=== PATIENT | male | born 1955 | race Caucasian/White ===

== ENCOUNTER 2024-05-17 08:52 | Outpatient (AMB) | payer MEDICARE, OTHER, SELFPAY ==
--- NOTE | 2024-05-17 08:54 | MHC.OFFVIS ---
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 Pt states he also has always had nerve issues in the right LE. Pt states Right LE has swelling and uses compression stocking. Pt is very active and drives to [place] and has issues with his right LE. Swelling worsens at the end of the day. Pt has some pain over VV. Had US at [facility] in [place]. Pt states pain is worse when non-ambulatory. 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 He states he has a lengthy medical history of right lower extremity issues. Complaints include discomfort, swelling of lower extremities, fatigue, and heaviness of the lower extremities. It has been affecting their daily activities including physical activity. It is noted more so in right leg. The patient was very active, participating in sports in the gym. He is not a smoker and is not a diabetic. He was recently ruled out for a DVT. Patient denies any previous venous surgery or injections. Patient denies any history of DVT/ PE. Patient denies any history of phlebitis. Trial of compression includes - compression stockings, which he states helps with the swelling. They now present for vascular evaluation regarding their varicose veins. [facility] Social History (Updated 05/17/24 @ 09:08 by SONYN Nelson) Patient Tobacco Use Status: Never used Tobacco Review of Systems Const Reports as per HPI and Denies weakness ENT Reports Normal hearing present and Denies dizziness Card Reports as per HPI, Denies chest pain, Denies chest pain at rest, Denies chest pain with activity, Denies dyspnea and Denies dyspnea on exertion Resp Reports as per HPI, Denies cough, Denies dyspnea and Denies dyspnea on exertion GI Reports as per HPI, Denies abdominal pain, Denies nausea and Denies vomiting Musc Denies numbness Skin/Breast Reports as per HPI, Denies erythema and Denies wounds Neuro Reports Normal hearing present, Denies dizziness, Denies numbness, Denies Sensory deficit (Neuro) and Denies weakness Psych Reports no additional complaints Endo Reports no additional complaints Physical Exam Vital Signs: BMI result Body Mass Index 27.3 Const General: healthy appearing and no acute distress Orientation/consciousness: patient oriented x3 HEENT Head: Yes normal to inspection Ears: hearing grossly normal bilaterally Mouth: Normal oral and palatal mucosa present Resp Effort & Inspection: normal respiratory effort and able to speak in complete sentences Auscultation: clear to auscultation bilaterally Cardio Jugular venous distension: no JVD Rate: regular rate Rhythm: regular rhythm Heart sounds: S1 normal heart sound present and S2 normal heart sound present Bruits: no abdominal aortic bruits, no carotid bruits, no femoral bruits and no renal bruits Peripheral pulses: Peripheral pulses 2+ throughout GI Inspection: Yes normal to inspection Palpation (GI): No Abdominal aortic bruit present Skin General skin exam: no rashes or lesions noted Wounds: no wounds Hair: normal Neuro General: patient oriented x3 Cranial nerves: Yes Normal hearing present Cognition (Neuro): normal cognition Gait exam (Neuro): Normal gait present Motor exam (neuro): 5/5 motor strength present throughout Sensory Exam: No Sensory deficit (Neuro) Extrem Other: Right lower extremity:+1 nonpitting edema noted. Small varicosity noted on the anterior calf, approximately 2-3 cm long, not painful to palpation. Discoloration noted around the ankle Left lower extremity: Trace peripheral edema noted. Small varicosities noted on the posterior calf, approximately 2-3 cm long. CEAP: C - 3/4 E - primary A - superficial P - reflux General: Yes normal to inspection, Yes full ROM, Yes capillary refill normal and Yes normal gait Assessment & Plan Assessment & Plan (1) Varicose veins of right lower extremity with inflammation: Code(s): I83.11 - Varicose veins of right lower extremity with inflammation Category: Medical Plan: Kp is presenting today as a referral from his PCP for ongoing and worsening right lower extremity swelling and discomfort. He states he has had lifelong issues with the right lower extremity. He denies any concerns with the left lower extremity. In short, the patient has evidence of venous insufficiency. I have discussed the pathophysiology with the patient. In addition I have provided informational material regarding venous disease to the patient. We have discussed conservative measures including compression, elevation, and exercise. We discussed the importance of continuing with compression stockings. I have taken the liberty of ordering venous insufficiency testing with the patient. They will follow up with me after testing. We also discussed that this could be a possibility of a lymphedema type process; I did discuss with him that we will rule out venous insufficiency and discuss lymphedema if there is no insufficiency found. The patient had an opportunity to ask questions regarding the treatment plan. All questions were answered. Imaging studies, laboratory studies and physical exam results were discussed and reviewed in detail. No major barriers to understanding were identified. The patient expressed understanding and agreement with the above treatment plan. The patient is aware they should contact our office by phone for worsening of the current condition or the appearance of new symptoms. Thank you for allowing me to participate in the vascular care of this patient. If you have any questions or concerns regarding the treatment for the above condition please do not hesitate to contact me. The office telephone contact is [phone]. This note is constructed using voice recognition software. While every effort has been made to ensure accuracy, universal winding machine operator errors may have been included. Thank you for allowing me to participate in the care of your patient. Yours sincerely, PEDRO LUIS Carr Orders: Orders US venous duplex LE BI 1 Week I83.11 - Varicose veins of right lower extremity with inflammation Coding Level of Care Code New Pt Level 4 (02375) Diagnoses Varicose veins of right lower extremity with inflammation I83.11
[2024-05-17 08:57] VITALS: BMI 27.3
--- OUTSIDE RECORDS SUMMARY | 2024-05-17 09:12 | XMS_ITS | Encounter Summary ---
Author Organization [facility] Address [address] [place] [address] Care Team Providers Care Family Practice Physician Name Role Phone Michael Badillo MD Primary Care Provider [phone] Encounter Details Date Type Department Care Team (Late st Contact Info) Description 02/03/2021 Erroneous Encounter [facility] DEPT [address] [place] [address] ProviderDestini MD Social History Tobacco Use Types Packs/Day Years Used Date Smoking Tobacco: Never Assessed Sex and Gender Information Value Date Recorded Sex Assigned at Not on file Gender Identity Not on file Sexual Orientation Not on file documented as of this encounter Plan of Treatment Upcoming Encounters Date Type Department Care Team (Late st Contact Info) Description 05/30/2024 8:00 AM EDT Office Visit [facility] [address] [place] [address] Leroy Hussein MD [address] [place] [address] [address] [place] [address] documented as of this encounter Visit Diagnoses Not on filedocumented in this encounter Care Teams Family Practice Physician Relationship Specialty Start Date End Date Michael Badillo MD [address] [place] [id number] PCP - General 02/16/24 documented as of this encounter
--- OUTSIDE RECORDS SUMMARY | 2024-05-17 09:12 | XMS_ITS | Data Portability ---
Author Organization [place] [facility], PED[facility], [place] Address [address] [place] [address] Assessment Encounter Date Assessment Date Assessment LastModified by Organization Details LastModified Time 08/05/2023 08/05/2023 Ddx: mechanical back pain/muscle strain, herniated disc, infectious process such as epidural/spinal abscess, spinal bony lesion (fracture, cancer), cauda equina, spondyloarthropa thy, referred abdominal pain, CVA, CT, dissection, anxiety Patient is appropriate for discharge at this time. Vitals reviewed. Patient was counselled and educated on ddx, dx, and tx plan. Follow up or to ER for any numbness, tingling, weakness, vision changes, headache, or other concerns. Patient was instructed to return to clinic or seek immediate medical attention if signs or symptoms persist or worsen. Discussed supportive measures. All questions were addressed. Patient verbalizes understanding and is in agreement with plan. Not available 08/14/2023 08:55:03 Plan of Treatment Reminders Order Date Submit Date Provider Last Modified By Organization Details Last Modified Time Details Appointments None recorded. Lab lyme disease igg+igm, serum, reflex western blot 0[address] [place] [facility], [address] [place] [address], [address], 18:05:57 lyme disease igg+igm Ab, serum 021 [email or web address] In-Office Order, Internal Use Only DO Not Attach Compendium DO Not Attach Compendium, Do Not Delete/merge, [id number] 17:34:38 Referral None recorded. Procedures None recorded. Surgeries None recorded. Imaging None recorded. Medication Orders None recorded. Patient TargetsNo targets recorded. Patient Instructions Encounter Date Encounter Id Patient Instructions Last Modified By Organization Details Last Modified Time 08/27/2020 [id number] neck pain: care instructions Not available 08/27/2020 17:34:14 back pain: care instructions Not available 08/27/2020 17:34:14 Take medication as prescribed, read pharmacy phamplet and discuss any concerns with the pharmacist. [place] clothing with permethrin. Take motrin and tylenol as needed for pain. Follow up with your PCP Read hand outs. Follow up if you are not improving or are worsening. Not available 08/27/2020 15:51:50 08/05/2023 [id number] back pain: care instructions Not available 08/14/2023 06:13:31 back care and preventing injuries: care instructions Not available 08/14/2023 06:13:32 arthritis: care instructions Not available 08/14/2023 06:13:32 eyelid twitch: care instructions Not available 08/14/2023 06:13:32 Read hand outs. Follow up if you are not improving or are worsening. Follow up with PCP for workup. Advil or Tylenol if tolerated. Additional testing needed beyond what is available at urgent care. Not available 08/14/2023 08:56:42 Patient was discharged from Urgent Care in stable condition. Not available 08/14/2023 08:55:52 Reason for Referral None Reported. Results Created Date Observation Date Name Description Value Unit Range Abnormal Flag Note LastModifiedBy Organization Detail LastModifiedTime 08/28/19 21 08/27/2020 lyme disea se igg+i gm Ab, serum RESULT negati ve Not Available In-Office Order Internal Use Only DO Not Attach Compendium DO Not Attach Compendium, Do Not Delete/merge, [id number] 08/27/2020 15:50:25 08/28/19 21 08/29/2020 LYME ANTIB PEMA/L INE BLOT REFLE X lyme IgG/IgM Ab <0.91 isr 0.00-0 .90 Negat heriberto <0.91 Equiv ocal 0.91 - 1.09 Posit heriberto >1.09 Not Available [facility] ([facility]) [address] [facility], [place], [address], 08/29/2020 18:05:57 08/28/19 21 08/29/2020 LYME ANTIB PEMA/L INE BLOT REFLE X lyme disease Ab, quant, IgM <0.80 index 0.00-0 .79 Negat heriberto <0.80 Equiv ocal 0.80 - 1.19 Posit heriberto >1.19 IgM level s may peak at 3-6 weeks post infec tion, then gradu ally decli ne. Not Available [facility] ([facility]) [address] [facility], [place], [address], 08/29/2020 18:05:57 Result Notes None recorded. Problems No Known Problems Procedures Surgical History Date Name Laterality Status Provider Name and Address Organization Details Recorded Time Knee Surgery completed Pancho Butcher MD [address] [place], [address], [facility], [place] 08/27/2020 17:39:54 Other completed Pancho Butcher MD [address] [place], [address], [facility], [place] 08/27/2020 17:40:14 Imaging Results None recorded. Procedure Notes None recorded. Medical Equipment None Reported. Allergies No known drug allergies Medications Name Sig Start Date Stop Date Status Note LastModified by Organization Details LastModified Time oxycodone-a cetaminophe n 5 mg-325 mg tablet ONE TAB BY MOUTH EVERY 4 HOURS OR EVERY 6 HOURS NEEDED PAIN. TAKE WITH FOOD. 08/27 completed Not Available Not Available Not Available esomeprazol e magnesium 40 mg capsule,del ayed release 08/27 completed Not Available Not Available Not Available lansoprazol e 30 mg capsule,del ayed release TAKE 1 CAPSULE BY MOUTH TWICE A DAY DIRECTED 08/27 completed Not Available Not Available Not Available zolpidem 5 mg tablet TAKE 1 TABLET BY MOUTH AT BEDTIME NEEDED 08/27 completed Not Available Not Available Not Available ibuprofen 600 mg tablet ONE TABLET BY MOUTH EVERY 6 HOURS OR EVERY 8 HOURS NEEDED 08/27 completed Not Available Not Available Not Available zolpidem 10 mg tablet TAKE 1 TABLET BY MOUTH AT BEDTIME NEEDED FOR SLEEP 08/27 completed Not Available Not Available Not Available Nexium active Not Available Not Availa ble Not Available Vitals Date Recorded Body height Body mass index (BMI) Body weight Heart rate Oxygen saturation Oxygen saturation in Arterial blood by Pulse oximetry Body temperature Systolic blood pressure Diastolic blood pressure Provider Name and Address Organization Details Last Updated DateTime 1 195.58 cm 27.7 kg/m2 201600 g 67 /min 98 % 98 % 96 [degF] 151 mm[Hg] 75 mm[Hg] [facility] [place] [facility], [place] 1 15:10:06 Date Recorded Body height Body mass index (BMI) Body weight Heart rate Oxygen saturation Oxygen saturation in Arterial blood by Pulse oximetry Body temperature Systolic blood pressure Diastolic blood pressure Provider Name and Address Organization Details Last Updated DateTime 2 195.58 cm 28.7 kg/m2 244454 g 54 /min 100 % 100 % 97.5 [degF] 137 mm[Hg] 74 mm[Hg] MINA STERN ON LICENSE OF [facility], [place] 2 15:03:13 Date Recorded Body height Body mass index (BMI) Body weight Heart rate Oxygen saturation Oxygen saturation in Arterial blood by Pulse oximetry Body temperature Systolic blood pressure Diastolic blood pressure Provider Name and Address Organization Details Last Updated DateTime 4 195.58 cm 27.1 kg/m2 938426 g 50 /min 98 % 98 % 97.9 [degF] 116 mm[Hg] 72 mm[Hg] MINA STERN ON LICENSE OF [facility], [place] 4 13:55:51 Social History Question Answer Notes LastModified by Organizat ion Details LastModified Time Tobacco Smoking Status Never Smoker Pancho Butcher MD [address] [place], [address], [facility], [place] 08/27/2020 18:19:16 What Is Your Level Of Alcohol Consumption? Occasional Information not available 09/07/2021 What Was The Date Of Your Most Recent Tobacco Screening? 09/07/2021 Information not available 09/07/2021 Sex: Unknown Functional Status None recorded. Mental Status None recorded. Family History Relationship Description Onset Age of this Age Resolved Age Notes LastModified by Organization Details LastModified Time Father No current problems or disability [email or web address] Not available 08/27 17:39:29 Mother No current problems or disability [email or web address] Not available 08/27 17:39:29 Notes:denies Medical History Condition Response Back Pain Y GERD/Reflux Y Past Encounters Encounter ID Performer Location Encounter Start Date Encounter Closed Date Diagnosis/Indication Diagnosis SNOMED-CT Code Diagnosis ICD10 Code Diagnosis Note [id number] Pancho Butcher MD [facility] [address] [place] [phone] 08/27/2020 15:02:08 08/27/2020 16:08:00 Muscle pain 32598553 M79.10 Neck pain 50122604 M54.2 Backache 189480925 M54.9 Suspected Lyme disease 119220625 Z03.89 [id number] DANNIE RAMIREZ MD [facility] [address] [place] [phone] 09/07/2021 14:53:45 09/07/2021 15:45:21 Skin lesion 10401853 L98.9 No indication of cellulitis . Pain likely from excoriatio ns in umbilicus. Rec no further cleaning with fingers to avoid further scratches. Polysporin ointment. F/u if any inc redness/pa in or not improving over next 3-4 days with conservati ve tx Ddx: excoriatio n, early cellulitis . 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 G24.5 likely from caffeine; fatigue, allergies, or sleep could contribute follow up with any new/worsen ing symptoms Chronic back pain 227522 002 M54.9 declines any meds or tx, follow up for imaging as already scheduleds [facility] immediate care if worse Health Concerns Section Related Observation LastModified by Organization Detai ls LastModified Time None Recorded Concern Status LastModified by Organization Details LastModified Time None Recorded Advance Directives Directive None Recorded Payers Encounter Date Sequence Insurance Name Policy Number Policy Bishop Covered Member ID Bishop Member ID Guarantor Name 08/27/2020 2 [employer] [id number] 2 Kp Stewartestevanparas [id number] Kp Terrystephanie 09/07/2021 2 [employer] [id number] 2 Kp Stewartstephanie [id number] Kp Stewartstephanie 08/05/2023 1 [place] [employer] [place]ICARE[place] Kp Zavala Claudio [id number] Kp Stewartstephanie 08/05/2023 2 [facility] [id number] 2 Kp Zavala Claudio [id number] Kp Stewartstephanie Notes Date Note Type Note Provider Name and Address Organization Details Recorded Time 1 text/html Generic HPI Template UCReported bypatient.source of patient informationInformation obtained from patient; Patient arrived at Urgent Care ambulatory Location:Whole body Severity:Moderate Duration:2 weeks Onset/Timing:Gradual Context:History if lyme in the s Associated Symptoms:Neck pain, muscle aches and stomach pain 64yo male presents to the office for possible lyme. He states that he golf's a lot and is currently camping at [place]. He thinks he has a possible tick bite on his left leg. He states he had lyme back in the and he has the same feeling. He stats that he has neck pain, muscle aches and abdominal pain x2 weeks. Pancho Butcher MD [address] [place], [address], [facility], [place] 08/27/2020 18:20:54 2 text/html Umbilical pain x 4 days- Was cleaning umbilicus and scratched it- Has been painful since and worried it is infected- No redness that he's noted. No discharge- No fever. No systemic sx. DANNIE RAMIREZ MD [address] [place], [address], [facility] 09/07/2021 15:47:50 4 text/html Back Pain/Injury UCReported bypatient.source of patient informationInformation obtained from patient; Patient arrived at Urgent Care ambulatory; learning styles: visual Location:lower back; pain is not radiating Quality:dull Duration:2 days Context:prior back problems; previous imaging studies Alleviating Factors:chiropractor Aggravating Factors:prolonged sitting or lyingEye problems UCReported bypatient.source of patient informationInformation obtained from patient Location:left Eye Symptoms:twitching Severity:moderate Onset/Timing:few hours ago Modifying Factors:nothing gives relief abel Alleviating factors:nothing helps Patient in town camping. States had some left back pain after sleeping in tent. Has history of back issues including arthritis and nerve impingement. Recent check-up. Has MRI scheduled in 2 weeks. Sees chiropractor. States feels better when moving and active. Also reports left eye twitching this morning. Started after breakfast drinking coffee. No weakness, numbness, or tingling. No fevers. No bladder/bowel sx. No vision changes. PEDRO LUIS WANG [address] [place], [address], [facility] 08/14/2023 08:57:11
--- OUTSIDE RECORDS SUMMARY | 2024-05-17 09:12 | XMS_ITS | Clinical Summary ---
Author Organization [facility] it Address [address] [place] [address] Care Team Providers Care Grails Web Application Developer Name Role Phone Kp Huggins MD Primary Care Provider [phone] Medications esomeprazole (NexIUM) [address] Lindsay ns:Gastroesophag eal reflux disease without esophagitis Take 1 capsule (40 mg total) by mouth 1 (one) time each day before breakfast. Do not open capsule. 30 each 04/15/2024 04/15/19 26 Active Encounters Date Type Department Care Team Description 04/15/2024 Telephone Gastroenterology - [address] [place] [address] Zachary Winston MD Medication from Last 3 Months Social History Tobacco Use Types Packs/Day Years Used Date Smoking Tobacco: Never Smokeless Tobacco: Never Sex and Gender Information Value Date Recorded Sex Assigned at Not on file Legal Sex Male 9:27 AM EST Gender Identity Not on file Sexual Orientation Not on file Obstetrics History Plan of Treatment Health Maintenance Due Date Last Done Comments DTaP,Tdap,and Td Vaccines (1 - Tdap) 10/10/1975 Pneumococcal Vaccine: 50+ Ye ars (1 of 1 - PCV) 2006 Zoster Vaccines (1 of 2) 2006 COVID-19 Vaccine ( - 2023-2 5 season) 2023 Influenza Vaccine (#1) 2023 Abdominal Aortic Aneurysm (A AA) Screen 04/16/2024 Cholesterol Screening (Lipid Panel) 04/16/2024 Colorectal Cancer Screening: Colonoscopy 04/16/2024 Depression Screening 04/16/2024 Falls Risk Assessment 04/16/2024 Hepatitis C Screening 04/16/2024 Social Influencers of Health Screening 04/16/2024 RSV Immunization Patients 60 + Years Old (1 - 1-dose 75+ series) 10/10/2031 HIB Vaccines Aged Out No longer eligi ble based on patient's age to complete this topic HPV Vaccines Aged Out No longer eligi ble based on patient's age to complete this topic Hepatitis A Vaccines Aged Out No long er eligible based on patient's age to complete this topic Hepatitis B Vaccines Aged Out No long er eligible based on patient's age to complete this topic IPV Vaccines Aged Out No longer eligi ble based on patient's age to complete this topic MMR Vaccines Aged Out No longer eligi ble based on patient's age to complete this topic Meningococcal ACWY Vaccine Aged Out N o longer eligible based on patient's age to complete this topic Meningococcal B Vacine Aged Out No lo nger eligible based on patient's age to complete this topic RSV Immunization Patients [place] 20 months Aged Out No longer eligible b ased on patient's age to complete this topic Varicella Vaccines Aged Out No longer eligible based on patient's age to complete this topic Care Teams Grails Web Application Developer Relationship Specialty Start Date End Date Kp Huggins MD [address] [facility] [address] [place] [address] PCP - General Internal Medicine 07/14/20
--- OUTSIDE RECORDS SUMMARY | 2024-05-17 09:12 | XMS_ITS | Data Portability ---
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 PLAN: The findings were reviewed with the patient, including the examination results, diagnosis and planned treatment(s). The treatment options were discussed. All questions were answered. Patient will call if there are any problems or questions. The symptoms, signs, natural history and treatment alternatives of each of the diagnoses were discussed. We discussed the options. 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 We discussed the options including splinting. Educational material was given on CMC arthritis, as well as Dupuytren? s and long opponens splints. He would like to try an injection to the maximum area of tenderness, which was his STT joint. He may need a CMC joint injection in the future. He is not ready for surgery at this time. He understands the nonoperative treatment. I have explained the findings, diagnosis, natural history and treatment alternatives of thumb CMC arthritis. Pain and limited motion may restrict routine activities. Nonsurgical treatment modalities including immobilization, nonsteroidal anti-inflammatory medication, injections and activity modification may provide relief of pain. When pain and disability are not alleviated by non-operative treatment, surgical treatment may be indicated. Surgery will not return the thumb and hand to normal. However, surgery does improve most patients. The surgical options include but are not limited to joint debridement (arthroscopic or open), metacarpal osteotomy, CMC joint arthroplasty and CMC joint fusion. I answered all questions. Educational material was supplied. We have discussed the findings, diagnosis, natural history and treatment alternatives of Dupuytren's disease. The significance of family history was discussed. The unpredictable response to treatment was discussed. They understand that there is no evidence that this is related to trauma and/or occupation. Non-invasive treatment modalities are minimal and not usually helpful. Occasionally injection of cortisone may soften and decrease the size of nodules. At this time there is no non-operative treatment for a contracture. For certain contractures it is possible to perform percutaneous needle aponeurotomy (NA) or collagenase injection. The indication for treatment is the degree of contracture but the rate of progression and interference with ADLs are also important. There is no cure for this condition and it often requires intermittent treatment including surgery. Even with surgery the condition can extend to other location or in the same digit in a different location or recur in the same location. I have discussed the surgical treatment which is palmar and digital fasciectomy with a possible skin graft. The expected residential results and benefits of the surgery were fully explained. Most patients can expect excellent correction of the MP joint contracture. The PIP joint does not correct as well and an average of 50% correction can be expected. However, individual results can vary. The extension and recurrence rate can vary between 20-80%. Nerve transection can and does occur in Dupuytren's surgery and NA because of the intimate relationship of the disease and the nerve. The nerve can wind around the band. This would result in absent or decreased sensation and possible neuroma symptoms. Xiaflex has been associated with uncommon tendon rupture. The problems of Dupuytren's flare which is more common in patients with open procedures, bilateral involvement, foot involvement, a family history and in women was discussed. The problems of stiffness, loss of motion and need for therapy was discussed. The possible need for a skin graft and its problems and possible failure was discussed. Healing problems can occur with delayed healing, need for secondary debridement and need for skin graft was discussed. The possibility of reflex sympathetic dystrophy was discussed. Educational material was given. PROCEDURE: I have recommended an injection. I explained that a steroid and local anesthetic injection usually decreases pain, inflammation and symptoms of the condition. The office will be called immediately if there are any problems (i.e. pain, signs of infection) after the injection. Written instructions were given. The risks, complications, benefits and alternatives were discussed including but not limited to pain, infection; unrelieved, recurrent or worsening symptoms; tendon, nerve or joint injury. The patient is aware that additional injections may be necessary. I gave no guarantees regarding outcome. If they have diabetes the cortisone may upset their diabetic protocol and if there is a problem they should contact their physician who takes care of their diabetes. The possibility of fat atrophy and depigmentation was discussed. Educational material was given. After sterile prep using aseptic technique, the left STT joint was injected through the dorsoradial portal with 10mg of Kenalog and 0.5cc of Lidocaine. He tolerated it well. Not available 05/05/2019 20:44:18 11/14/2019 11/14/2019 DATA: Radiograph s are reviewed and interpreted of the left thumb from 05/02/2019 and is consistent with STT joint that is rather dramatic, as well as definite thumb CMC joint. PLAN: The findings were reviewed with the patient, including the examination results, diagnosis and planned treatment(s). The treatment options were discussed. All questions were answered. Patient will call if there are any problems or questions. The symptoms, signs, natural history and treatment alternatives of each of the diagnoses were discussed. We discussed the options. His main clinical problems is STT joint arthritis, but he also has thumb CMC arthritis and is clearly symptomatic but not as much so. He would like an injection for the STT joint. We discussed if surgery was needed, he would need that taken care of at the STT joint, as well as the CMC joint. Therefore, he would need an LRTI type of procedure. He is not a candidate for thumb CMC fusion or a wrist STT fusion or an isolated ST arthroplasty. We explained that in great detail. I did give him educational material on CMC arthritis and the postoperative protocol. He would like an injection. He will follow the nonoperative protocol. PROCEDURE: I have recommended an injection. I explained that a steroid and local anesthetic injection usually decreases pain, inflammation and symptoms of the condition. The office will be called immediately if there are any problems (i.e. pain, signs of infection) after the injection. Written instructions were given. The risks, complications, benefits and alternatives were discussed including but not limited to pain, infection; unrelieved, recurrent or worsening symptoms; tendon, nerve or joint injury. The patient is aware that additional injections may be necessary. I gave no guarantees regarding outcome. If they have diabetes the cortisone may upset their diabetic protocol and if there is a problem they should contact their physician who takes care of their diabetes. The possibility of fat atrophy and depigmentation was discussed. Educational material was given. After sterile prep using aseptic technique, the left wrist STT joint was injected at the maximum area of tenderness through a dorsal radial portal. He tolerated it well. We will see him back as needed. The patient did complete the COVID-19 screening handout and was deemed healthy to move forward with this appointment. This visit is a [id number] visit during the COVID-19 pandemic Public Health Emergency. Based on my clinical judgment, I felt that this visit could not be provided safely and appropriately via TeleHealth. Based on available information prior to presentation, the patient had a high risk of significant worsening and potential functional impairment affecting ADLs if the visit was not completed today. The patient was seen in the office after following PPE use, Workforce Safety, Patient Safety and Infection Control protocols for all services provided today in accordance with [facility] and CDC guidelines. There was additional practice expense incurred due to the Public Health Emergency. This additional expense includes but is not limited to: ? ? Additional clinical staff and medical career technical counselor time for pre-screening ? ? Time spent reviewing COVID social distancing guidelines, precautions, instructions, and signage ? ? Patient symptom checking upon arrival ? ? Application, removal, and purchasing of additional PPE ? ? Additional cleaning of exam room, equipment, supplies, as well as cleaning supplies for that purpose. Not available 11/17/2019 22:26:25 Plan of Treatment Reminders Order Date Submit Date Provider Last Modified By Organization Details Last Modified Time Details Appointments None recorded. Lab None recorded. Referral None recorded. Procedures None recorded. Surgeries None recorded. Imaging None recorded. Medication Orders Kenalog 10 mg/mL suspension for injection 2019 020 aterrono Not available 0 07:03:02 Kenalog 10 mg/mL suspension for injection 2019 020 ajawa Not available 0 14:48:02 Patient TargetsNo targets recorded. Patient InstructionsNo instructions recorded. Reason for Referral None Reported. Procedures Surgical History Date Name Laterality Status Provider Name and Address Organization Details Recorded Time 6 Orthopaedic Surgery completed Trang Larkin [facility] 05/02/2019 09:54:44 3 Orthopaedic Surgery completed Trang Larkin [facility] 05/02/2019 09:54:26 Imaging Results None recorded. Procedure Notes None recorded. Medical Equipment None Reported. Allergies Allergen ID Allergen Name Allergen Category Reaction Reaction Severity Criticality Documentation Date Start Date Code Code System Note Provider Name and Address Organization Details Recorded Time 589467 acetamino phen / oxycodone medicatio n nausea Not available Not available 05/02/201907088 3 [facility] 0 09:52:48 913598 acetamino phen / hydrocodo ne medicatio n nausea Not available Not available 05/02/201948996 2 [facility] 0 09:[facility]57 Medications Name Sig Start Date Stop Date Status Note LastModified by Organization Details LastModified Time ofloxacin 0.3 % eye drops 05/02 completed Not Available Not Available Not Available ketorolac 0.5 % eye drops active Not Available Not Available Not Available prednisolon e acetate 1 % eye drops,suspe nsion active Not Available Not Available Not Available Kenalog 10 mg/mL suspension for injection Take 1 mL by injection route. 2019 active Not Available Not Available Not Avai lable lansoprazol e 30 mg capsule,del ayed release active Not Available Not Available Not Available zolpidem 10 mg tablet TK 1 T PO QD HS PRF PHARMACEUTICAL SPECIALTY REPRESENTATIVE active Not Available Not Available No t Available Fluarix Quad (PF) 60 mcg (15 mcg x 4)/0.5 mL IM syringe 05/02 completed Not Available Not Available Not Available Fluzone Quad (PF) 60 mcg (15 mcg x 4)/0.5 mL IM syringe PHARMACY ADMINISTE RED active Not Available Not Available No t Available Vitals Date Recorded Body height Body mass index (BMI) Body weight Provider Name and Address Organization Details Last Updated DateTime 05/02/2019 195.58 cm 27.3 kg/m2 119538.25 g Trang Larkin [facility] 05/02/2019 09:52:26 Date Recorded Body height Body mass index (BMI) Body weight Provider Name and Address Organization Details Last Updated DateTime 11/14/2019 195.58 cm 27.3 kg/m2 445590.25 g Priscilla Aguilar [facility] 11/14/2019 09:34:20 Social History Question Answer Notes LastModified by Organizat ion Details LastModified Time Tobacco Smoking Status Never Smoker Trang Trae umaña [facility] 05/02/2019 09:53:48 What Is Your Level Of Alcohol Consumption? Occasional Information not available 05/02/2019 If Patient Spent Time In [facility] - Does The Patient Live In [facility]? No Information not available 05/02/2019 In The 14 Days Before Symptom Onset, Did The Patient Spend Time In [facility]? No Information not available 05/02/2019 Have You Been To An Area Known To Be High Risk For COVID-19? No Information not available 05/02/2019 What Is Your Occupation? Retired Information not available 05/02/2019 Sex: Unknown Functional Status None recorded. Mental Status None recorded. Family History Relationship Description Onset Age of this Age Resolved Age Notes LastModified by Organization Details LastModified Time Father No current problems or disability [email or web address] Not available 05/02 09:53:35 Mother No current problems or disability [email or web address] Not available 05/02 09:53:35 Medical History Condition Response Blood Clots / Phlebitis N HIV or AIDS N Heart Problems N High Blood Pressure N Depression or Anxiety N Irregular Heartbeat N MRSA N Emphysema / Chronic Bronchitis N Any Other Significant Medical Issues N Reaction to General/Local Anesthesia N Hepatitis / Jaundice N Weight Gain / Loss N Kidney / Bladder Infections N Diabetes N Bleeding Disorder N Hearing Loss N Angina, Heart Failure or Attack N Night Sweats N Seizures / Epilepsy N Osteoarthritis / Rheumatoid arthritis / Other Y Cancer N Stroke N Chemical Dependency / Alcoholism N Ulcer / Stomach Bleeding / Indigestion N Visual Loss or Glaucoma N Psoriasis / Skin Rash N Thyroid Disorder N Heart Disease N Asthma / Shortness of Breath / Sleep Brand Attendant ea (please specify) N Pulmonary Embolism N Immunizations Vaccine Type Date Status Note Provider Nam e and Address Organization Details Recorded Time Influenza, split virus, quadrivalent, preservative 0 completed Trang Larkin [facility] 05/02/2019 09:53:27 Past Encounters Encounter ID Performer Location Encounter Start Date Encounter Closed Date Diagnosis/Indication Diagnosis SNOMED-CT Code Diagnosis ICD10 Code Diagnosis Note [id number] KAYLEE PAT MD [address] [address] 05/02/2019 09:21:45 05/02/2019 11:02:34 Dupuytrens contracture of bilateral hands [id number] 4931418 M72.0 Osteoarthr osis of the carpometacarpal joint of the thumb 71528819 M18.12 [id number] KAYLEE PAT MD [address] [address] 11/14/2019 09:17:19 11/14/2019 09:54:40 Osteoarthritis of wrist 499946303 M19.032 Osteoarthr osis of the carpometacarpal joint of the thumb 42574421 M18.12 Health Concerns Section Related Observation LastModified by Organization Detai ls LastModified Time None Recorded Concern Status LastModified by Organization Details LastModified Time None Recorded Advance Directives Directive None Recorded Payers Encounter Date Sequence Insurance Name Policy Number Policy Bishop Covered Member ID Bishop Member ID Guarantor Name 05/02/2019 1 [facility] [id number] Rich Snyder [id number] Rich Snyder 11/14/2019 1 [facility] ([facility]) [id number] Rich Snyder [id number] Rich Snyder Notes Date Note Type Note Provider Name and Address Organization Details Recorded Time 05/02/2019 text/html HX: 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 He is seen for radial sided left wrist pain and base of thumb pain. He has previously been seen by Dr. Pedro Schmidt, and he is here for follow-up. He was initially scheduled for surgery, and then his of cancer in 2018, so he postponed the surgery. Dr. Schmidt suggested that he come here to follow up after he has moved to [place]. He has not had any injections. He has no numbness or tingling and no clicking or locking. 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 s. It? s unclear. REVIEW OF SYSTEMS: Review of systems is performed including allergy and immune system, cardiovascular system, constitutional symptoms, eyes, ears, nose and throat, endocrine system, gastrointestinal system, genitourinary system, hematologic system, skin, musculoskeletal system, neurologic system, psychiatric, and respiratory system are noncontributory and recorded in the chart. 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 He is seen for radial sided left wrist pain and thumb base pain. He has previously been seen by Dr. Pedro Schmidt. On 05/02/2019, I injected the left wrist STT joint, and that helped a lot. He does have some fibromatosis and a history of Dupuytren? s, but possible history of Dupuytren? s it is unclear. The injection helped, but symptoms have started to recur. REVIEW OF SYSTEMS: Review of systems is performed including allergy and immune system, cardiovascular system, constitutional symptoms, eyes, ears, nose and throat, endocrine system, gastrointestinal system, genitourinary system, hematologic system, skin, musculoskeletal system, neurologic system, psychiatric, and respiratory system are noncontributory and recorded in the chart. KAYLEE PAT MD [address] [place] [address], [phone], [facility] 11/18/2019 08:48:14
--- OUTSIDE RECORDS SUMMARY | 2024-05-17 09:12 | XMS_ITS | Clinical Summary ---
Author Organization [facility] Address [address] [place] [address] Care Team Providers Care Gas Worker Name Role Phone Michael Badillo MD Primary Care Provider [phone] Social History Tobacco Use Types Packs/Day Years Used Date Smoking Tobacco: Never Assessed Sex and Gender Information Value Date Recorded Sex Assigned at Not on file Gender Identity Not on file Sexual Orientation Not on file Plan of Treatment Upcoming Encounters Date Type Department Care Team (Late st Contact Info) Description 05/30/2024 8:00 AM EDT [facility] Visit [facility] [address] [place] [address] Leroy Hussein MD [address] [place] [address] [address] [place] [address] Health Maintenance Due Date Last Done Comments Hepatitis C Virus Screening 1955 DTaP/Tdap/Td Vaccines (1 - Tdap) 10/10/1975 Colonoscopy 2001 Pneumococcal Vaccines 50+ (1 of 1 - PCV) 2006 Zoster (Shingles) Vaccine (1 of 2) 2006 Influenza Vaccine 10/05/2023 COVID-19 Vaccine (1 - 2023-2 5 season) 2023 RSV Vaccine 60 years and old er and Patients (1 - 1-dose 75+ series) 10/10/2031 Hepatitis B Vaccines Aged Out No long er eligible based on patient's age to complete this topic Care Teams Gas Worker Relationship Specialty Start Date End Date Michael Badillo MD [address] [facility] [address] [place], [place] [phone] PCP - General 02/16/24
== END 2024-05-17 09:29 | disposition home or self-care (01) ==
LOC: HO.HVS 08:52
PROVIDERS: PCP Internal Medicine; Visit Provider Physician Assistant Surgical
DX: I83.11 Varicose veins of right lower extremity with inflammation (principal)
CPT/HCPCS: 99204

== ENCOUNTER → 2024-05-17 08:52 | Outpatient (BNVA) | payer MEDICARE, OTHER, SELFPAY | PROVIDERS: PCP Internal Medicine; Visit Provider Physician Assistant Surgical | DX: I83.11 Varicose veins of right lower extremity with inflammation (principal) | CPT/HCPCS: 99202 ==

== ENCOUNTER 2024-06-06 08:22 | Outpatient (REF) | payer MEDICARE, OTHER, SELFPAY ==
--- NOTE | ~2024-06-06 | US_ITS ---
EXAMINATION: US LOWER EXTREMITY VENOUS (REFLUX EXAM), BILATERAL CLINICAL INFORMATION: Varices. Inflammation. COMPARISON: None. TECHNIQUE: Color flow triplex imaging and compression Doppler was performed to evaluate both the deep and the superficial systems bilaterally. To evaluate the superficial system, the examination was performed in the upright position. Color-flow Doppler ultrasound and compression ultrasound were utilized. In addition, maneuvers were utilized to demonstrate reflux. FINDINGS: 1. DEEP VENOUS ULTRASOUND OF THE RIGHT LOWER EXTREMITY: Common Femoral Vein: Compressible, normal respiratory variation and augmented flow. Femoral Vein: Compressible, normal color flow and augmentation. Popliteal Vein: Compressible, normal augmentation. Deep Reflux: There is no evidence of reflux in the deep system in either the common femoral vein, superficial femoral or the popliteal vein. There is no evidence of a Pérez's cyst. 2. SUPERFICIAL ULTRASOUND WITH DOPPLER OF RIGHT LOWER EXTREMITY: GREAT SAPHENOUS VEIN: Saphenofemoral Junction: Not seen. Proximal Thigh: 0.1 cm; Reflux: 0 ms Mid Thigh: 0.1 cm; Reflux: 0 ms Distal Thigh: 0.1 cm; Reflux: 0 ms At Knee: 0.1 cm; Reflux: 0 ms Proximal Calf: 0.1 cm; Reflux: 0 ms Mid Calf: 0.1 cm; Reflux: 0 ms Distal Calf: 0.1 cm; Reflux: 0 ms DUPLICATED MEDIAL GREAT SAPHENOUS VEIN: Diameter: None imaged Reflux: NA DUPLICATED LATERAL GREAT SAPHENOUS VEIN: Diameter: None imaged Reflux: NA SMALL SAPHENOUS VEIN: Saphenopopliteal Junction: 0.6 cm; Reflux: 0 ms Proximal: 0.3 cm; Reflux: 0 ms Distal: 0.3 cm; Reflux: 0 ms VEIN OF GIACOMINI: Size: NA Reflux: NA PERFORATORS: Location: Mid thigh, proximal and mid calf. Size: 0.2 cm. Reflux: 2676 ms in the proximal calf. VARICOSITIES: Location: Small saphenous vein proximal segment. Distal calf. Size: 0.3 cm. Reflux: NA 3. DEEP VENOUS ULTRASOUND OF THE LEFT LOWER EXTREMITY: Common Femoral Vein: Compressible, normal respiratory variation and augmented flow. Femoral Vein: Compressible, normal color flow and augmentation. Popliteal Vein: Compressible, normal augmentation. Deep Reflux: There is no evidence of reflux in the deep system in either the common femoral vein, superficial femoral or the popliteal vein. There is no evidence of a Pérez's cyst. 4. SUPERFICIAL ULTRASOUND WITH DOPPLER OF LEFT LOWER EXTREMITY: GREAT SAPHENOUS VEIN: Saphenofemoral Junction: 0.9 cm; Reflux: 0 ms Proximal Thigh: 0.4 cm; Reflux: 0 ms Mid Thigh: 0.4 cm; Reflux: 0 ms Distal Thigh: 0.5 cm; Reflux: 0 ms At Knee: 0.4 cm; Reflux: 0 ms Proximal Calf: 0.4 cm; Reflux: 0 ms Mid Calf: 0.1 cm; Reflux: 0 ms Distal Calf: 0.3 cm; Reflux: More than 3016 ms DUPLICATED MEDIAL GREAT SAPHENOUS VEIN: Diameter: None imaged Reflux: NA DUPLICATED LATERAL GREAT SAPHENOUS VEIN: Diameter: 0.2 cm. Reflux: NA SMALL SAPHENOUS VEIN: Saphenopopliteal Junction: 0.4 cm; Reflux: 0 ms Proximal: 0.3 cm; Reflux: 0 ms Distal: 0.3 cm; Reflux: 0 ms VEIN OF GIACOMINI: Size: 0.2 cm. Reflux: NA PERFORATORS: Location: Small saphenous vein proximal and mid segments. Mid and distal calf. Size: 0.2-0.3 cm. Reflux: NA VARICOSITIES: Location: At the knee and distal calf. Size: 0.3-0.4 cm. Reflux: NA US/US venous insuf bilat IMPRESSION: Right: No venous insufficiency. Perforators in the proximal calf with reflux. Varices without reflux. Left: Venous insufficiency, great saphenous vein at the ankle. Varices and perforators without reflux.. Electronically signed by: Abdoul James MD 06/06/2024 10:52 AM EDT
--- OUTSIDE RECORDS SUMMARY | 2024-06-06 08:28 | XMS_ITS | Data Portability ---
Author Organization [place] [facility], PEDRO LUIS, [place] Address [address] [place] [address] Assessment Encounter Date Assessment Date Assessment LastModified by Organization Details LastModified Time 08/05/2023 08/05/2023 Ddx: mechanical back pain/muscle strain, herniated disc, infectious process such as epidural/spinal abscess, spinal bony lesion (fracture, cancer), cauda equina, spondyloarthropa thy, referred abdominal pain, CVA, [place], dissection, anxiety Patient is appropriate for discharge [...] disease igg+igm, serum, reflex western blot 0[address] [place] [facility], [address] [place] [address], [address], 18:05:57 lyme disease igg+igm Ab, serum 021 mpond4 In-Office Order, Internal Use Only DO Not Attach Compendium DO Not Attach Compendium, Do Not Delete/merge, [id number] 17:34:38 Referral None recorded. Procedures None recorded. Surgeries None recorded. Imaging None recorded. Medication Orders None recorded. Patient TargetsNo targets recorded. Patient Instructions Encounter Date Encounter Id Patient Instructions Last Modified By Organization Details Last Modified Time 08/27/2020 [id number] neck pain: care instructions Not available 08/27/2020 17:34:14 back pain: care instructions Not available 08/27/2020 17:34:14 Take medication as prescribed, read pharmacy phamplet and discuss any concerns with the pharmacist. [place] clothing with permethrin. Take motrin and tylenol as needed for pain. Follow up with your PCP Read hand outs. Follow up if you are not improving or are worsening. Not available 08/27/2020 15:51:50 08/05/2023 [id number] back pain: care instructions Not available 08/14/2023 [...] DO Not Attach Compendium, Do Not Delete/merge, [id number] 08/27/2020 15:50:25 08/28/19 21 08/29/2020 LYME ANTIB PEMA/L INE BLOT REFLE X lyme IgG/IgM Ab <0.91 isr 0.00-0 .90 Negat heriberto <0.91 Equiv ocal 0.91 - 1.09 Posit heriberto >1.09 Not Available [facility] ([facility]) [address] [facility], [place], [address], 08/29/2020 18:05:57 08/28/19 21 08/29/2020 LYME ANTIB PEMA/L INE BLOT REFLE X lyme disease Ab, quant, IgM <0.80 index 0.00-0 .79 Negat heriberto <0.80 Equiv ocal 0.80 - 1.19 Posit heriberto >1.19 IgM level s may peak at 3-6 weeks post infec tion, then gradu ally decli ne. Not Available [facility] ([facility]) [address] [facility], [place], [address], 08/29/2020 18:05:57 Result Notes None recorded. Problems No Known Problems Procedures Surgical History Date Name Laterality Status Provider Name and Address Organization Details Recorded Time Knee Surgery completed Pancho Butcher MD [address] [place], [address], [facility], [place] 08/27/2020 17:39:54 Other completed Pancho Butcher MD [address] [place], [address], [facility], [place] 08/27/2020 17:40:14 Imaging Results None recorded. Procedure [...] Updated DateTime 1 195.58 cm 27.7 kg/m2 571993 g 67 /min 98 % 98 % 96 [degF] 151 mm[Hg] 75 mm[Hg] GILBERTO BARRY [place] - [facility], [place] 1 15:10:06 Date Recorded Body height Body mass index (BMI) Body weight Heart rate Oxygen saturation Oxygen saturation in Arterial blood by Pulse oximetry Body temperature Systolic blood pressure Diastolic blood pressure Provider Name and Address Organization Details Last Updated DateTime 2 195.58 cm 28.7 kg/m2 937305 g 54 /min 100 % 100 % 97.5 [degF] 137 mm[Hg] 74 mm[Hg] MINA STERN [facility] [place] 2 15:03:13 Date Recorded Body height Body mass index (BMI) Body weight Heart rate Oxygen saturation Oxygen saturation in Arterial blood by Pulse oximetry Body temperature Systolic blood pressure Diastolic blood pressure Provider Name and Address Organization Details Last Updated DateTime 4 195.58 cm 27.1 kg/m2 191425 g 50 /min 98 % 98 % 97.9 [degF] 116 mm[Hg] 72 mm[Hg] MIAN STERN [facility] [place] 4 13:55:51 Social History Question Answer Notes LastModified by Organizat ion Details LastModified Time Tobacco Smoking Status Never Smoker Pancho Butcher MD [address] [place], [address], [facility] - [facility], [place] 08/27/2020 18:19:16 What Is Your Level Of [...] SNOMED-CT Code Diagnosis ICD10 Code Diagnosis Note [id number] Pancho Butcher MD [facility] [address] [place] [id number] 08/27/2020 15:02:08 08/27/2020 16:08:00 Muscle pain 20730499 M79.10 Neck pain 21951830 M54.2 Backache 293120336 M54.9 Suspected Lyme disease 046350412 Z03.89 [id number] DANNIE RAMIREZ MD [facility] [address] [place] [address] 09/07/2021 14:53:45 09/07/2021 15:45:21 Skin lesion 64741043 L98.9 No indication of cellulitis . Pain likely from excoriatio ns in umbilicus. Rec no further cleaning with fingers to avoid further scratches. Polysporin ointment. F/u if any inc redness/pa in or not improving over next 3-4 days with conservati ve tx Ddx: excoriatio n, early cellulitis . [id number] PEDRO LUIS WANG [facility] [address] [place] [phone] 08/05/2023 13:46:09 08/05/2023 14:31:00 Blepharospasm 28880496 G24.5 likely from caffeine; fatigue, allergies, or sleep could contribute follow up with any new/worsen ing symptoms Chronic back pain 568012 002 M54.9 declines any meds or tx, follow up for imaging as already scheduleds [facility] care if worse Health Concerns Section Related Observation LastModified by Organization Detai ls LastModified Time None Recorded Concern Status LastModified by Organization Details LastModified Time None Recorded Advance Directives Directive None Recorded Payers Encounter Date Sequence Insurance Name Policy Number Policy Bishop Covered Member ID Bishop Member ID Guarantor Name 08/27/2020 2 [facility] [id number] 2 Kp Stewartestevanparas [id number] Kp Terrystephanie 09/07/2021 2 [facility] [id number] 2 Kp Stewartstephanie [id number] Kp Stewartstephanie 08/05/2023 1 [place] - [employer] [place]MEDICARE[place] Kp Zavala Claudio [id number] Kp Stewartstephanie 08/05/2023 2 [facility] [id number] 2 Kp Zavala Claudio [id number] Kp Stewartstephanie Notes Date Note Type Note [...] a lot and is [place]. He thinks he has a possible tick bite on his left leg. He states he had lyme back in the and he has the same feeling. He stats that he has neck pain, muscle aches and abdominal pain x2 weeks. Pancho Butcher MD [address] [place], [address], [facility] - [facility], [place] 08/27/2020 18:20:54 2 text/html Umbilical pain x 4 days- Was cleaning umbilicus and scratched it- Has been painful since and worried it is infected- No redness that he's noted. No discharge- No fever. No systemic sx. DANNIE RAMIREZ MD [address] [place], [address], [facility] - [facility], [place] 09/07/2021 15:47:50 4 text/html Back Pain/Injury UCReported [...] No vision changes. PEDRO LUIS WANG [address] [place], [address], [place] [facility] 08/14/2023 08:57:11
--- OUTSIDE RECORDS SUMMARY | 2024-06-06 08:28 | XMS_ITS | Data Portability ---
Author Organization [place] [facility] [place], [facility] Address [address] [place] [address] Care Team Providers Care Chain Maker Hand Name Role Phone RICH MOSCOSO Primary Care [...] with a possible skin graft. The expected long-term results and benefits of the surgery were [...] with this appointment. This visit is a gsua-gc-lhzo visit during the COVID-19 pandemic Public Health [...] all services provided today in accordance with [facility] and CDC guidelines. There was additional practice expense incurred due to the Public Health Emergency. This additional expense includes but is not limited to: ? Additional clinical staff and medical it technical specialist time for pre-screening ? Time spent reviewing COVID social distancing guidelines, precautions, instructions, and signage ? Patient symptom checking upon arrival ? Application, removal, and purchasing of additional PPE ? Additional cleaning of exam room, equipment, [...] Time 6 Orthopaedic Surgery completed Trang Larkin [facility] [place] 05/02/2019 09:54:44 3 Orthopaedic Surgery completed Trang Larkin [facility] [place] 05/02/2019 09:54:26 Imaging Results None recorded. Procedure Notes None recorded. Medical Equipment None Reported. 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 Not Available Not Available No t [...] Updated DateTime 05/02/2019 195.58 cm 27.3 kg/m2 344008.25 g Trang Larkin [facility] [place] 05/02/2019 09:52:26 Date Recorded Body height Body mass index (BMI) Body weight Provider Name and Address Organization Details Last Updated DateTime 11/14/2019 195.58 cm 27.3 kg/m2 297376.25 g Priscilla Aguilar [facility] [place] 11/14/2019 09:34:20 Social History Question Answer Notes LastModified by Organizat ion Details LastModified Time Tobacco Smoking Status Never Smoker Trang umaña [facility] [place] 05/02/2019 09:53:48 What Is Your Level Of Alcohol Consumption? Occasional Information not available 05/02/2019 If Patient Spent Time In [facility] - Does The Patient Live In [facility]? No Information not available 05/02/2019 In The 14 Days Before Symptom Onset, Did The Patient Spend Time In [facility]? No Information not available 05/02/2019 Have You [...] available 05/02 09:53:35 Medical History Condition Response HIV or AIDS N High Blood Pressure N Irregular Heartbeat N MRSA N Any Other Significant Medical Issues N Weight Gain / Loss N Hearing Loss N Angina, Heart Failure or Attack N Night Sweats N Seizures / Epilepsy N Osteoarthritis / Rheumatoid arthritis / Other Y Cancer N Stroke N Ulcer / Stomach Bleeding / Indigestion N Visual Loss or Glaucoma N Blood Clots / Phlebitis N Heart Problems N Depression or Anxiety N Emphysema / Chronic Bronchitis N Reaction to General/Local Anesthesia N Hepatitis / Jaundice N Kidney / Bladder Infections N Diabetes N Bleeding Disorder N Chemical Dependency / Alcoholism N Psoriasis / Skin Rash N Thyroid Disorder N Heart Disease N Asthma / Shortness of Breath / Sleep 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 (please specify) N Pulmonary Embolism N Immunizations Vaccine Type Date Status Note Provider Nam e and Address Organization Details Recorded Time Influenza, split virus, quadrivalent, preservative 0 completed Trang umaña [facility] [place] 05/02/2019 09:53:27 Past Encounters Encounter ID Performer Location Encounter Start Date Encounter Closed Date Diagnosis/Indication Diagnosis SNOMED-CT Code Diagnosis ICD10 Code Diagnosis Note [id number] KAYLEE PAT MD [facility] Office [address] [place] [id number] 05/02/2019 09:21:45 05/02/2019 11:02:34 Dupuytrens contracture of bilateral hands [id number] 5686640 M72.0 Osteoarthr osis of the carpometacarpal joint of the thumb 30140970 M18.12 [id number] KAYLEE PAT MD [address] [address] 11/14/2019 09:17:19 11/14/2019 09:54:40 Osteoarthritis of wrist 306232714 M19.032 Osteoarthr osis of the carpometacarpal joint of the thumb 80911238 M18.12 Health Concerns Section Related Observation LastModified by Organization Detai ls LastModified Time None Recorded Concern Status LastModified by Organization Details LastModified Time None Recorded Advance Directives Directive None Recorded Payers Encounter Date Sequence Insurance Name Policy Number Policy Bishop Covered Member ID Bishop Member ID Guarantor Name 05/02/2019 1 [facility] [id number] Rich Snyder [id number] Rich Snyder 11/14/2019 1 [facility] (O) [id number] Rich Snyder [id number] Rich Snyder Notes Date Note Type Note [...] follow up after he has moved to [place]. He has not had any injections. He has no numbness or tingling and no clicking or locking. 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 s . It? s unclear. REVIEW OF SYSTEMS: Review of systems is performed including allergy and immune system, cardiovascular system, constitutional symptoms, eyes, ears, nose and throat, endocrine system, gastrointestinal system, genitourinary system, hematologic system, skin, musculoskeletal system, neurologic system, psychiatric, and respiratory system are noncontributory and recorded in the chart. 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 He is seen for radial sided left wrist pain and thumb base pain. He has previously been seen by Dr. Pedro Schmidt. On 05/02/2019, I injected the left wrist STT joint, and that helped a lot. He does have some fibromatosis and a history of Dupuytren? s , but possible history of Dupuytren? s it [...] recorded in the chart. KAYLEE PAT MD [address] [place] [address], [phone], [facility] [place] 11/18/2019 08:48:14
--- OUTSIDE RECORDS SUMMARY | 2024-06-06 08:28 | XMS_ITS | Clinical Summary ---
Author Organization [facility] Address [address] [place] [address] Care Team Providers Care Form Setter Steel Pan Forms Name Role Phone Michael Badillo MD Primary Care Provider [phone] Encounters Date Type Department Care Team Description 05/30/2024 8:40 AM EDT [place]illary [place] [address] 05/30/2024 8:00 AM ED[place] [address] Leroy Hussein MD Primary osteoarthritis of right hand (Primary Dx); Dupuytren's contracture of hand; Primary osteoarthritis of first carpometacarpal joint of right hand from Last 3 Months Social History Tobacco Use Types Packs/Day Years Used Date Smoking Tobacco: Never Assessed Sex and Gender Information Value Date Recorded Sex Assigned at Not on file Gender Identity Not on file Sexual Orientation Not on file Plan of Treatment Upcoming Encounters Date Type Department Care Team (Late st Contact Info) Description 09/26/2024 8:00 AM EDT [place] [address] Irma Almeida PA-C [address] [place] [address] [place] [address] Health Maintenance Due Date Last Done Comments [...] on patient's age to complete this topic Procedures Procedure Name Priority Date/Time Associated Diagnosis Comments XR FINGER (3RD) 2+ VIEWS-RIGHT Routine 05/30/2024 8:45 AM EDT Primary osteoarthritis of right hand from Last 3 Months Results * XR Finger (3rd) 2+ views-Right (05/30/2024 8:45 AM EDT) Narrative [facility] - 05/30/2024 8:45 AM EDT This exam was performed in office at [facility] and images reviewed by orthopedic provider. ??Any findings are documented within ambulatory encounter note on date of service. Leroy Hussein MD IMG DIAGNOSTIC [facility] ORDERABLES [facility] from Last 3 Months Care Teams Form Setter Steel Pan Forms Relationship Specialty Start Date End Date Michael Badillo MD [address] [place], [place] [id number] PCP - General 02/16/24
--- OUTSIDE RECORDS SUMMARY | 2024-06-06 08:28 | XMS_ITS | Clinical Summary ---
Author Organization [facility] it Address [address] [place] [address] Care Team Providers Care Blocker Polishing Name Role Phone Kp Huggins MD Primary Care Provider [phone] Medications esomeprazole (NexIUM) [address] capsuleIndicati ons:Gastroesoph ageal reflux disease without esophagitis TAKE 1 CAPSULE BY MOUTH 1 TIME EACH DAY BEFORE BREAKFAST. DO NOT OPEN CAPSULE. 90 capsule 5 025 Active esomeprazole (NexIUM) [address] capsuleIndicati ons:Gastroesoph ageal reflux disease without esophagitis Take 1 capsule (40 mg total) by mouth 1 (one) time each day before breakfast. Do not open capsule. 30 each 5 025 Discontinued Encounters Date Type Department Care Team Description 04/15/2024 Telephone Gastroenterology - [address] [address] Zachary Winston MD Medication from Last [...] Influencers of Health Screening 04/16/2024 RSV Immunization Adult Patie nts (1 - 1-dose 75+ series) 10/10/2031 HIB [...] age to complete this topic Care Teams Blocker Polishing Relationship Specialty Start Date End Date Kp Huggins MD [address] [facility] [address] [place] [address] PCP - General Internal Medicine 07/14/20
--- OUTSIDE RECORDS SUMMARY | 2024-06-06 08:28 | XMS_ITS | Encounter Summary ---
Author Organization [facility] Address [address] [place] [address] Care Team Providers Care Publicity Consultant Name Role Phone Michael Badillo MD Primary Care Provider [phone] Encounter Details Date Type Department Care Team (Late st Contact Info) Description 02/03/2021 Erroneous Encounter [facility] CONVERSION DEPT [address] [place] [address] ProviderDestini MD Social History Tobacco Use Types [...] 09/26/2024 8:00 AM EDT [facility] Visit [facility] [address] [place] [address] Irma Almeida, PA-C [address] [place] [address] [address] [place] [address] documented as of this encounter Visit Diagnoses Not on filedocumented in this encounter Care Teams Publicity Consultant Relationship Specialty Start Date End Date Michael Badillo MD [address] [facility] [address] [place] [address] PCP - General 02/16/24 documented as of this encounter
== END 2024-06-06 08:23 | disposition home or self-care (01) ==
LOC: HO.US 08:22
PROVIDERS: PCP Internal Medicine; Visit Provider Physician Assistant Surgical
DX: I83.11 Varicose veins of right lower extremity with inflammation (principal)
CPT/HCPCS: 93970

== ENCOUNTER → 2024-06-06 08:23 | Outpatient (BNV) | payer MEDICARE, OTHER, SELFPAY | PROVIDERS: PCP Internal Medicine; Visit Provider Radiology Diagnostic Radiology | DX: I83.11 Varicose veins of right lower extremity with inflammation (principal); I83.12 Varicose veins of left lower extremity with inflammation | CPT/HCPCS: 93970 ==